=== PATIENT | male | born 1985 | race Two or more races ===

== ENCOUNTER 2018-03-09 16:11 | Inpatient (IN) | END 2018-03-30 14:20 | disposition home or self-care (01) | DRG 853 ==

== ENCOUNTER 2018-06-05 11:37 | Inpatient (IN) | END 2018-06-17 17:50 | disposition home health service (06) | DRG 871 ==

== ENCOUNTER 2019-02-09 19:50 | Inpatient (IN) | payer OTHER ==
[~2019-02-09] VITALS: Ht 180.3 cm; Wt 74.9 kg
[~2019-02-09 19:50] MED LIST: ACET325T40 PO; ALPR0.5T6 PO; GABA300C16 PO; HYDR-3980 PO; HYDR-4011 PO; LACT1CAP28 PO; LORA-441 PO; PROC10TA PO; SENOKOTS PO
[2019-02-09 21:59] VITALS: BP 112/59; PULSE 55; RESP 17
[2019-02-09] MEDS ORDERED: METH-378 PO (22:21)
[2019-02-09] MEDS ORDERED: NACL 0.9% 3 ML SYG IV SCH (22:30)
[2019-02-09] MEDS ORDERED: DOCUSATE SODIUM 100 MG CAP PO PRN (22:30)
[2019-02-09] MEDS ORDERED: BISACODYL (EC) 5 MG TAB PO PRN (22:30)
[2019-02-09] MEDS ORDERED: ONDANSETRON 4 MG INJ IV PRN (22:30)
[2019-02-09] MEDS ORDERED: VANCOMYCIN IV PER PHARMACY XX SCH (22:30)
--- NOTE | 2019-02-09 22:31 | HP ---
Date/Time of Note Date/Time of Note DATE: 02/09/19 TIME: 22:31 Assessment/Plan VTE Prophylaxis SCD applied (from [facility]): Yes Pharmacological prophylaxis: NA/contraindicated Pharm contraindication: low risk/ambulating Assessment/Plan Hospital Course This is a 33-year-old male [facility] for: #1 right hand cellulitis: Appears to be improving as per the patient. Lines of demarcation have been drawn from the transferring facility and the redness does appear to be receding. Vancomycin IV per pharmacy. #2 history of IV drug use: Patient reports not using for the last few months. He reports that he is on methadone 56 mg p.o. daily, I will give him a dose of this and we will need to confirm with his clinic in the a.m. #3 DVT GI prophylaxis: SCDs, no GI prophylaxis indicated Further treatment strategy will be implemented as per the clinical course HPI/ROS Admit Date/Time Admit Date/Time Feb 09, 2019 at 20:50 Hx of Present Illness Chief complaint: Right upper extremity cellulitis This is a 33-year-old male with a past medical history of endocarditis, opiate use disorder who presented to [facility] with complaints of right hand pain. Patient reported that he had right hand pain with redness and swelling times 1 day. It was warm and tender to touch. He also reported low- grade temperatures. He denies any traumas or bites. He does have a history of IV drug use. He denied any recent use. Patient did have imaging studies performed which did not show any signs of fluid collection or subcutaneous gas. Patient was treated with vancomycin and Zosyn prior to transfer to [facility]. Patient also currently is on methadone 56 mg p.o. daily. Pertinent laboratory findings from transfer facility please see chart for full details: CRP 5.30 lactic acid 1.8 white blood cell 6.3 ESR [address] of the upper extremity with contrast was performed which showed cellulitis along the dorsum of the hand with no drainable fluid collection or subcutaneous gas. No acute osseous abnormality noted. X-ray of the hand: The study is limited by flexion of the fingers. The bony cortices appear intact and without evidence of fracture or dislocation. There appears to be mild soft tissue swelling along the dorsum of the hand. Allergic: NKDA Medications: ROS Const: As per HPI Eyes : No pain discharge or redness or change in visual acuity ENT: No pain, sore throat, congestion, congestion, dysphagia or discharge Respiratory: No shortness of breath, cough, sputum, wheezing, or pleuritic pain Cardiovascular: No chest pain, palpitation, PND, or edema GI : no change in appetite, abdominal pain, nausea, vomiting, diarrhea, constipation, or change in the color his stool Genitourinary: No dysuria, hematuria, flank pain , discharge or CVA tenderness Musculoskeletal: No joint pain, back pain, neck pain, restricted range of motion in neck or joints Skin: As per HPI Neuro: No headache, dizziness, syncope, seizure, focal weakness Endocrine: No polyuria, polydipsia, temperature intolerance Psych: No hallucination, depression, anxiety or suicidal ideation PMH/Family/Social Past Medical History Pneumonia Endocarditis Opiate use d/o Coded Allergies: No Known Allergy (Unverified , 06/05/18) Past Surgical History Past Surgical Hx: no surgical history Family History Significant Family History: no pertinent family hx Social History Smoking Status: Former smoker Exam/Review of Systems Vital Signs Vitals Vital Signs Date Temp Pulse Resp B/P (MAP) Pulse Ox O2 O2 Flow FiO2 Time Delivery Rate 02/09/19 98.4 55 17 112/59 98 21:59 (76) Exam Exam General: Patient is a pleasant male currently lying in bed in no acute distress HEENT: Atraumatic, normocephalic. The pupils are equal, round and reactive. Extraocular motor are intact Neck: Supple with full range of motion. No rigidity or meningismus Chest: Nontender Lungs: Clear to auscultation bilaterally no crackles rales or wheezing Heart: Normal S1-S2, Regular rhythm and rate. Abdomen: Soft , nontender, nondistended , bowel sounds are present. No guarding no rebound tenderness , No masses or organomegaly. No costovertebral temporal angle mass Extremities: Normal to inspection, no edema no cyanosis Skin: Right hand cellulitis at the dorsal surface, lines of demarcation drawn and redness and erythema appear to be improved as per the patient swelling also appears to be improved as per the patient. No signs of trauma or point of entry Neurologic: Normal mental status, speech normal, cranial nerves II through XII are intact, motor and sensory are intact, DAYANARA CUELLAR Feb 09, 2019 22:31
[2019-02-09] MEDS ORDERED: VANCOMYCIN HCL 1.5 GM in SOD CHLORIDE 0.9% 250 ML IVPB ONE (23:30)
[2019-02-09] MEDS: ALPRAZOLAM 0.5 MG TAB PO SCH (23:35)
[2019-02-10 02:10] VITALS: BP 111/53; PULSE 54; RESP 17
[2019-02-10] MEDS: VANCOMYCIN HCL 1.25 GM in SOD CHLORIDE 0.9% 250 ML IVPB SCH ×3 (02:23→21:57)
[2019-02-10] MEDS: ACETAMINOPHEN 325 MG TAB PO PRN ×2 (06:31→18:00)
[2019-02-10 08:46] VITALS: BP 99/55; PULSE 58; RESP 18
[2019-02-10] MEDS: ALPRAZOLAM 0.5 MG TAB PO SCH ×2 (09:51→20:54)
[2019-02-10 14:00] VITALS: BP 115/51; PULSE 75; RESP 18
[2019-02-10] MEDS ORDERED: METHADONE (1 MG/1 ML PO SYG) PO SCH (14:00)
[2019-02-10] MEDS: METHADONE (1 MG/1 ML PO SYG) PO SCH (14:13)
--- NOTE | 2019-02-10 15:59 | PN ---
Date/Time of Note Date/Time of Note DATE: 02/10/19 TIME: 15:55 Assessment/Plan VTE Prophylaxis Risk score (from [facility])>0 risk: 1 SCD applied (from [facility]): Yes Pharmacological prophylaxis: other Pharm contraindication: low risk/ambulating Lines/Catheters IV [facility]ter Type (from [facility] Saline Lock Assessment/Plan Assessment/Plan 1. Right hand cellulitis, improving on vancomycin 2. History of IV drug use: Patient reports not using for the last few months. He reports that he is on methadone 56 mg p.o. daily, I will give him a dose of this and we will need to confirm with his clinic in the a.m. 3. DVT GI prophylaxis: SCDs Result Diagram: 02/10/19 1102 02/10/19 1102 Results 24hrs Laboratory Tests Test 02/09/19 23:01 02/10/19 11:02 White Blood Count 4.3 L 4.3 L Red Blood Count 4.54 L 4.44 L Hemoglobin 13.6 #L 13.4 L Hematocrit 40.8 L 40.0 L Mean Corpuscular Volume 89.9 90.1 Mean Corpuscular Hemoglobin 30.0 30.2 Mean Corpuscular Hemoglobin Concent 33.3 33.5 Red Cell Distribution Width 11.9 12.0 Platelet Count 221 # 227 Mean Platelet Volume 10.4 9.9 Immature Granulocytes % 0.200 0.500 H Neutrophils % 55.4 51.2 Lymphocytes % 26.6 31.9 Monocytes % 16.4 H 15.0 H Eosinophils % 0.9 0.9 Basophils % 0.5 0.5 Nucleated Red Blood Cells % 0.0 0.0 Immature Granulocytes # 0.010 0.020 Neutrophils # 2.4 2.2 Lymphocytes # 1.1 1.4 Monocytes # 0.7 0.7 Eosinophils # 0.0 0.0 Basophils # 0.0 0.0 Nucleated Red Blood Cells # 0.0 0.0 Erythrocyte Sedimentation Rate 10 2 Sodium Level 138 142 Potassium Level 4.5 4.9 Chloride Level 105 107 Carbon Dioxide Level 26 31 Anion Gap 7 4 L Blood Urea Nitrogen 13 11 Creatinine 0.89 0.74 Est Glomerular Filtrat Rate mL/min > 60 > 60 Glucose Level 120 94 Calcium Level 9.1 9.1 Total Bilirubin 0.2 0.1 L Direct Bilirubin 0.00 0.00 Indirect Bilirubin 0.2 0.1 Aspartate Amino Transf (AST/SGOT) 57 H 53 H Alanine Aminotransferase (ALT/SGPT) 50 52 Alkaline Phosphatase 94 78 C-Reactive Protein 4.7 H 3.2 H Total Protein 6.4 6.0 L Albumin 3.6 3.3 Globulin 2.80 2.70 Albumin/Globulin Ratio 1.28 1.22 Hemoglobin A1c 5.1 Magnesium Level 2.0 Triglycerides Level 167 H Cholesterol Level 103 LDL Cholesterol, Calculated 41 HDL Cholesterol 29 Cholesterol/HDL Ratio 3.5 Thyroid Stimulating Hormone (TSH) 1.380 Subjective 24 Hr Interval Summary Free Text/Dictation less swelling on right hand Exam/Review of Systems Exam Vitals Vital Signs Date Temp Pulse Resp B/P (MAP) Pulse Ox O2 O2 Flow FiO2 Time Delivery Rate 02/10/19 97.8 58 18 99/55 (70) 99 08:46 Intake and Output 02/09/19 02/09/19 02/10/19 1515:00 23:00 07:00 IntakeIntake Total 500 ml BalanceBalance 500 ml Constitutional: alert, oriented, well developed Psych: no complaints, nl mood/affect Head: normocephalic, atraumatic Eyes: nl conjunctiva, EOMI, nl lids ENMT: nl external ears & nose, nl lips & teeth, nl nasal mucosa & septum Neck: supple, non-tender Respiratory: clear to auscultation, normal air movement; No congested cough, No crackles/rales, No diminished breath sounds, No intercostal retraction, No labored breathing, No respirations, No tactile fremitus, No wheezing, No other Cardiovascular: regular rate and rhythm, nl pulses; No bruits, No diastolic murmur, No edema, No gallop, No irregular rhythm, No jugular venous distention (JVD), No murmurs/extra sounds, No rub, No systolic murmur, No S3, No S4, No other Gastrointestinal: soft, nl liver, spleen, non-tender Extremities: normal pulses, other (right hand swelling and redness); No calf tenderness, No cyanosis, No clubbing, No edema, No pitting pedal edema, No palpable cord, No tenderness Neurological: PATTERN HANGER II-XII intact, nl mental status, nl speech, nl strength Results Results 24hrs Laboratory Tests Test 02/09/19 23:01 02/10/19 11:02 White Blood Count 4.3 L 4.3 L Red Blood Count 4.54 L 4.44 L Hemoglobin 13.6 #L 13.4 L Hematocrit 40.8 L 40.0 L Mean Corpuscular Volume 89.9 90.1 Mean Corpuscular Hemoglobin 30.0 30.2 Mean Corpuscular Hemoglobin Concent 33.3 33.5 Red Cell Distribution Width 11.9 12.0 Platelet Count 221 # 227 Mean Platelet Volume 10.4 9.9 Immature Granulocytes % 0.200 0.500 H Neutrophils % 55.4 51.2 Lymphocytes % 26.6 31.9 Monocytes % 16.4 H 15.0 H Eosinophils % 0.9 0.9 Basophils % 0.5 0.5 Nucleated Red Blood Cells % 0.0 0.0 Immature Granulocytes # 0.010 0.020 Neutrophils # 2.4 2.2 Lymphocytes # 1.1 1.4 Monocytes # 0.7 0.7 Eosinophils # 0.0 0.0 Basophils # 0.0 0.0 Nucleated Red Blood Cells # 0.0 0.0 Erythrocyte Sedimentation Rate 10 2 Sodium Level 138 142 Potassium Level 4.5 4.9 Chloride Level 105 107 Carbon Dioxide Level 26 31 Anion Gap 7 4 L Blood Urea Nitrogen 13 11 Creatinine 0.89 0.74 Est Glomerular Filtrat Rate mL/min > 60 > 60 Glucose Level 120 94 Calcium Level 9.1 9.1 Total Bilirubin 0.2 0.1 L Direct Bilirubin 0.00 0.00 Indirect Bilirubin 0.2 0.1 Aspartate Amino Transf (AST/SGOT) 57 H 53 H Alanine Aminotransferase (ALT/SGPT) 50 52 Alkaline Phosphatase 94 78 C-Reactive Protein 4.7 H 3.2 H Total Protein 6.4 6.0 L Albumin 3.6 3.3 Globulin 2.80 2.70 Albumin/Globulin Ratio 1.28 1.22 Hemoglobin A1c 5.1 Magnesium Level 2.0 Triglycerides Level 167 H Cholesterol Level 103 LDL Cholesterol, Calculated 41 HDL Cholesterol 29 Cholesterol/HDL Ratio 3.5 Thyroid Stimulating Hormone (TSH) 1.380 Medications Medication Current Medications Alprazolam (Xanax) 1 mg BID PO Last administered on 02/10/19at 09:51; Admin Dose 1 MG; Start 02/09/19 at 22:30 IV Flush (NS 3 ml) 3 ml PER PROTOCOL IV ; Start 02/09/19 at 22:30 Ondansetron HCl (Zofran Inj) 4 mg Q6H PRN IV NAUSEA/VOMITING; Start 02/09/19 at 22:30 Acetaminophen (Tylenol Tab) 650 mg Q6H PRN PO .PAIN 1-3 OR TEMP Last administered on 02/10/19at 06:31; Admin Dose 650 MG; Start 02/09/19 at 22:30 Docusate Sodium (Colace) 100 mg Q12H PRN PO .CONSTIPATION; Start 02/09/19 at 22:30 Bisacodyl (Dulcolax) 5 mg DAILY PRN PO .CONSTIPATION; Start 02/09/19 at 22:30 Vancomycin HCl (Vanco Iv Per Pharmacy) VANCOMYCIN PER PHARMACY PER PROTOCOL XX ; Start 02/09/19 at 22:30 Methadone HCl (Methadone Liq (Ped)) 56 mg DAILY PO Last administered on 02/10/19at 14:13; Admin Dose 56 MG; Start 02/10/19 at 14:30 Vancomycin HCl 1.25 gm/Sodium Chloride 250 ml @ 83.333 mls/ hr Q8H IVPB ; Start 02/10/19 at 21:00 Miscellaneous Information (*Rx Drug Level Order Reminder*) 1 ONCE ONCE XX ; Start 02/11/19 at 04:00; Stop 02/11/19 at 04:01 MAXIME HAYES MD Feb 10, 2019 15:59
[2019-02-10 20:00] VITALS: BP 114/60; PULSE 54; RESP 18
[2019-02-11] MEDS: ACETAMINOPHEN 325 MG TAB PO PRN ×2 (00:38→13:06)
[2019-02-11 02:00] VITALS: BP 115/55; PULSE 59; RESP 18
[2019-02-11] MEDS: VANCOMYCIN HCL 1.25 GM in SOD CHLORIDE 0.9% 250 ML IVPB SCH ×2 (06:03→14:03)
[2019-02-11 08:00] VITALS: BP_SYST 98; BP_SYST 99; BP_DIAS 51; BP_DIAS 66; PULSE 88; PULSE 99; RESP 18; RESP 20
[2019-02-11] MEDS: ALPRAZOLAM 0.5 MG TAB PO SCH (09:20)
[2019-02-11] MEDS: METHADONE (1 MG/1 ML PO SYG) PO SCH (09:20)
[2019-02-11] MEDS ORDERED: CEPH500C PO (13:25)
--- NOTE | 2019-02-11 13:33 | DS ---
Date/Time of Note Date/Time of Note DATE: 02/11/19 TIME: 13:27 Discharge Summary Admission/Discharge Info Admit Date/Time Feb 09, 2019 at 20:50 Discharge Date/Time Discharge Diagnosis 1. Right hand cellulitis, improving, keflex, follow up with PCP 2. History of IV drug use, on methadone Patient Condition: Stable Hospital Course This is a 33-year-old male with a past medical history of endocarditis, opiate use disorder who presented to [facility] with complaints of right hand pain. Patient reported that he had right hand pain with redness and swelling times 1 day. It was warm and tender to touch. He also reported low- grade temperatures. He denies any traumas or bites. He does have a history of IV drug use. He denied any recent use. Patient did have imaging studies performed which did not show any signs of fluid collection or subcutaneous gas. Patient was treated with vancomycin and Zosyn prior to transfer to [facility]. Patient also currently is on methadone 56 mg p.o. daily. Pertinent laboratory findings from transfer facility please see chart for full details: CRP 5.30 lactic acid 1.8 white blood cell 6.3 ESR [address] of the upper extremity with contrast was performed which showed cellulitis along the dorsum of the hand with no drainable fluid collection or subcutaneous gas. No acute osseous abnormality noted. X-ray of the hand: The study is limited by flexion of the fingers. The bony cortices appear intact and without evidence of fracture or dislocation. There appears to be mild soft tissue swelling along the dorsum of the hand. Patient is on vancomycin, redness on right hand is improving. I will discharge him on keflex and he is instructed to keep right hand elevation. Home Meds Active Scripts Cephalexin* (Cephalexin*) 500 Mg Capsule, 500 MG PO Q6, #7 CAP Prov:MAXIME HAYES MD 02/11/19 Hydrocodone/Acetaminophen ([place] 10-325 Tablet) 1 Each Tablet, 1 EACH PO Q4 for pain, #24 TAB 0 Refills Prov:HOUSTON GALINDO MD 06/17/18 Lorazepam* (Ativan*) 0.5 Mg Tablet, 0.5 MG PO Q6H PRN for ANXIETY for 3 Days, #10 TAB Prov:HOUSTON GALINDO MD 06/17/18 Acetaminophen (MAPAP) 325 Mg Tablet, 325 MG PO Q6H PRN for PAIN AND OR ELEVATED TEMP for 1 Day, TAB otc Prov:HOUSTON GALINDO MD 06/17/18 Prochlorperazine Maleate (Compazine) 10 Mg Tablet, 10 MG PO Q6H PRN for NAUSEA AND/OR VOMITING for 5 Days, #10 TAB Prov:HOUSTON GALINDO MD 06/17/18 Lactobacillus Rhamnosus GG (Culturelle) 1 Each Capsule, 1 CAP PO BID for 10 Days, CAP otc Prov:HOUSTON GALINDO MD 06/17/18 Alprazolam* (Alprazolam*) 0.5 Mg Tablet, 1 MG PO BID for 7 Days, #14 TAB Prov:HOUSTON GALINDO MD 06/17/18 Gabapentin* (Gabapentin*) 300 Mg Capsule, 300 MG PO TID for 10 Days, #30 CAP 1 Refill Prov:HOUSTON GALINDO MD 06/17/18 Sennosides/Docusate Sodium (Dok Plus Tablet) 1 Each Tablet, 1 TAB PO BID PRN for CONSTIPATION for 15 Days, #15 TAB 1 Refill Prov:HOUSTON GALINDO MD 06/17/18 Hydrocodone/Acetaminophen ([place] 5-325 Tablet) 1 Each Tablet, 1 EACH PO Q12, #14 TAB Prov:KAELYN INGRAM 03/30/18 Reported Medications Methadone Hcl (Methadone) 10 Mg Tab, 56 MG PO DAILY, TAB 02/09/19 Follow-up Plan PCP in one week Primary Care Provider Care Physician No Primary Pending Labs Laboratory Tests Test 02/10/19 20:08 Vancomycin Level Trough 14.3 ug/ml (10.0-20.0) MAXIME HAYES MD Feb 11, 2019 13:33
[2019-02-11 14:00] VITALS: BP 136/66; PULSE 76; RESP 18
== END 2019-02-11 18:40 | disposition home or self-care (01) | DRG 603 ==
LOC: PP2 20:50
PROVIDERS: ADMIT Internal Medicine; ATTEND Internal Medicine
DX: L03.113 Cellulitis of right upper limb (principal); Z79.899 Other long term (current) drug therapy
CPT/HCPCS: 80053; 80061; 80202; 83036; 83735; 84443; 84560; 85025; 85651; 86140; J3370; J7050